=== PATIENT | female | born 1990 | race Caucasian/White ===

== ENCOUNTER 2018-12-31 17:47 | Emergency (ER) | payer MEDICAID ==
[~2018-12-31] VITALS: Ht 166.4 cm; Wt 61.7 kg
[2018-12-31 17:51] VITALS: BP 121/75
--- NOTE | 2018-12-31 18:00 | NUR ---
EKG SEEN BY DR. REY, PER DR. REY PT MAY WAIT IN THE LOBBY
[2018-12-31 19:37] LABS: BASOPHILS % (AUTO) 0.6 % (0.0-2.0); EOSINOPHILS # (AUTO) 0.1 K/uL (0-0.4); HEMATOCRIT 42.4 % (36-48); HEMOGLOBIN 14.2 g/dL (12.0-16.0); LYMPHOCYTES # (AUTO) 1.7 K/uL (2.5-16.5); LYMPHOCYTES % (AUTO) 21.1 % (20.5-51.1); MEAN CORPUSCULAR HEMOGLOBIN 30 pg (27-31); MEAN CORPUSCULAR HGB CONC 33 g/dL (33-37); MEAN CORPUSCULAR VOLUME 90.8 fL (80-94); MONOCYTES # (AUTO) 0.7 K/uL (0.8-1.0); MONOCYTES % (AUTO) 8.2 % (1.7-9.3); NEUTROPHILS # (AUTO) 5.7 K/uL (1.8-7.7); NEUTROPHILS % (AUTO) 69.1 % (42.2-75.2); PLATELET COUNT (AUTO) 194 K/uL (140-450); RED BLOOD CELL COUNT(AUTO) 4.68 MIL/uL (4.20-5.40); RED CELL DISTRIBUTION WIDTH 13.6 % (11.6-13.7); WHITE BLOOD COUNT (AUTO) 8.2 K/uL (4.8-10.8)
--- NOTE | 2018-12-31 19:45 | NUR ---
PT BROUGHT TO BED 3 VIA WHEELCHAIR
[2018-12-31 20:02] LABS: ALBUMIN 4.1 g/dL (3.4-5.0); ANION GAP 9.4 (8-16); CARBON DIOXIDE 30.8 mmol/L (21-32); CREATININE 0.8 mg/dL (0.6-1.3); POTASSIUM 4.2 mmol/L (3.5-5.1); TOTAL BILIRUBIN 0.4 mg/dL (0.0-1.0)
--- NOTE | 2018-12-31 20:27 | NUR ---
PT TO ED WITH C/O CHEST PAIN SUDDEN ONSET X 2 DAYS. PT DENIES SOB. CARDIAC ASSESSMENT WNL. NO OBVIOUS DISTRESS NOTED. PT REPORTS PREVIOUS HX OF ANIXETY. PT PLACED INTO BED, PENDING MD FLOOD.
[2018-12-31] MEDS ORDERED: KETOROLAC 30 MG/ML VIAL IM ONE (20:30)
[2018-12-31 21:00] VITALS: BP 118/74
--- NOTE | 2018-12-31 21:00 | NUR ---
Patient discharged with v/s stable. Written and verbal after care instructions given and explained. Patient alert, oriented and verbalized understanding of instructions. Ambulatory with steady gait. All questions addressed prior to discharge. ID band removed. Patient advised to follow up with PMD. Rx of MOTRIN, PEPCID, AND NORCO given. Patient educated on indication of medication including possible reaction and side effects. Opportunity to ask questions provided and answered.
== END 2018-12-31 21:00 | disposition home or self-care (01) ==
LOC: EDBD 17:47 → MED 17:47
DX: R07.89 Other chest pain (principal); F41.9 Anxiety disorder, unspecified; Z88.1 Allergy status to other antibiotic agents
CPT/HCPCS: 36415; 71045; 80053; 81002; 81025; 84484; 85025; 96372; 99284; J1885; 93005

== ENCOUNTER 2019-08-16 13:45 | Emergency (ER) | payer MEDICAID ==
[~2019-08-16] VITALS: Ht 165.1 cm; Wt 65.8 kg
[2019-08-16 13:51] VITALS: BP 123/71
--- NOTE | 2019-08-16 14:00 | NUR ---
PT AMBULATED TO BED 03.
--- NOTE | 2019-08-16 14:03 | NUR ---
Patient being evaluated by KATHY TARANGO at bedside.
--- NOTE | 2019-08-16 14:08 | NUR ---
XRAY WAS BEDSIDE.
[2019-08-16] MEDS ORDERED: DEXAMETHASONE 10 MG/ML VIAL IM ONE (14:20)
[2019-08-16 15:00] VITALS: BP 121/75
== END 2019-08-16 15:00 | disposition home or self-care (01) ==
LOC: MED 13:45
DX: J40 Bronchitis, not specified as acute or chronic (principal); Z88.1 Allergy status to other antibiotic agents
CPT/HCPCS: 71045; 96372; 99283; J1100; Q0092

== ENCOUNTER 2019-08-24 18:08 | Emergency (ER) | payer MEDICAID ==
[~2019-08-24] VITALS: Ht 165.1 cm; Wt 68.0 kg
[2019-08-24 18:17] VITALS: BP 117/49
--- NOTE | 2019-08-24 18:40 | NUR ---
29/F PRESENTS TO ED, C/O NONPRODUCTIVE COUGH X2 WEEKS. PT WAS SEEN HERE IN ER 1 WEEK AGO, GIVEN RX WITHOUT RELIEF. PEPORTS PLEURITIC CP AND SORE THROAT, EXACERBATED BY COUGHING. PT AWAKE AND ALERT, SKIN NORMAL COLOR WARM AND DRY, RR EVEN AND UNLABORED. LUNG SOUNDS CLEAR BL. HX ASTHMA RX ALBUTEROL INHLAER PRN; RX PREDNISONE AND COUGH MEDICINE WITHOUT RELIEF.
--- NOTE | 2019-08-24 19:10 | NUR ---
BEDSIDE REPORT RECIEVED FROM ARSH PATRICIA. ASSUMED CARE AT THIS TIME.
--- NOTE | 2019-08-24 20:04 | NUR ---
Patient discharged with v/s stable. Written and verbal after care instructions given and explained. Patient alert, oriented and verbalized understanding of instructions. Ambulatory with steady gait. All questions addressed prior to discharge. ID band removed. Patient advised to follow up with PMD. Rx of azithromycin, flonase, and promethezine given. Patient educated on indication of medication including possible reaction and side effects. Opportunity to ask questions provided and answered.
== END 2019-08-24 20:04 | disposition home or self-care (01) ==
LOC: MED 18:08
DX: R05 Cough (principal); J45.909 Unspecified asthma, uncomplicated; Z88.1 Allergy status to other antibiotic agents
CPT/HCPCS: 99283